=== PATIENT | female | born 1960 | race Caucasian/White ===

== ENCOUNTER → 2017-01-27 | Outpatient (CLI) | payer BC, OTHER | LOC: ULTRA 12:56 | DX: E04.9 Nontoxic goiter, unspecified (principal); L85.9 Epidermal thickening, unspecified; R53.83 Other fatigue ==

== ENCOUNTER → 2017-09-11 | Outpatient (CLI) | payer BC, OTHER ==
[2017-09-11 08:14] LABS: ANION GAP 14 mmol/L (7-16); BUN 17 mg/dL (7-18); CALCIUM 9.3 mg/dL (8.5-10.1); CHLORIDE 102 mmol/L (98-107); CO2 23 mmol/L (21-32); CREATININE 1.1 mg/dL (0.6-1.0); GLUCOSE 119 mg/dL (74-106); POTASSIUM 4.6 mmol/L (3.5-5.1); SODIUM 139 mmol/L (136-145)
[2017-09-11 08:20] LABS: ALBUMIN 3.9 g/dL (3.4-5.0); CHOLESTEROL 238 mg/dL (<200); DIRECT BILIRUBIN < 0.1 mg/dL (<0.1-0.3); HDL CHOLESTEROL 56 mg/dL (>40); LDL CHOLESTEROL 128 mg/dL (<100); SGOT 35 U/L (15-37); SGPT 56 U/L (30-65); TC:HDL 4.3 Ratio (Not establshd); TOTAL BILIRUBIN 0.3 mg/dL (<0.1-1.0); TOTAL PROTEIN 7.4 g/dL (6.4-8.2); TRIGLYCERIDE 273 mg/dL (<150); VLDL 55 mg/dL (<40)
[2017-09-11 13:07] LABS: CRP HIGHLY SENSITIVE 5.74 mg/L (0.00-3.00)
[2017-09-11 17:13] LABS: GLYCOHEMOGLOBIN (HGB A1C) 5.4 % (4.8-5.6)
== END ==
LOC: ULTRA 07:35
PROVIDERS: Internal Medicine Pulmonary Disease
DX: E06.3 Autoimmune thyroiditis (principal); E01.0 Iodine-deficiency related diffuse (endemic) goiter; R79.89 Other specified abnormal findings of blood chemistry